=== PATIENT | female | born 1945 | race Caucasian/White ===

== ENCOUNTER → 2017-03-02 | Outpatient (CLI) | payer MEDICARE ==
--- NOTE | 2017-03-02 13:02 | REP ---
Clinical: Pain. Strain. Technique: AP, lateral, bilateral oblique, and sunrise views of the right knee. Findings: Mild tricompartmental degenerative changes include subtle spurring along the tibial plateau and increase sclerosis as well as joint space narrowing at the tibiofemoral and patellofemoral joint spaces. No acute fracture dislocation. No obvious effusion. Impression: Mild tricompartmental arthritic degenerative changes. Signed by Scott Greene MD 03/02/2017 12:53 P
== END ==
LOC: M WUC 12:10
PROVIDERS: ATTEND Physician Assistant
DX: S76.311A Strain of muscle, fascia and tendon of the posterior muscle group at thigh level, right thigh, initial encounter (principal); M17.9 Osteoarthritis of knee, unspecified; X58.XXXA Exposure to other specified factors, initial encounter; Y92.89 Other specified places as the place of occurrence of the external cause; Y93.89 Activity, other specified; Y99.8 Other external cause status

== ENCOUNTER 2018-06-21 11:19 | Outpatient (RCR) | payer MEDICARE | END 2018-07-09 | LOC: M PT 11:19 | PROVIDERS: ATTEND Orthopaedic Surgery | DX: Z51.89 Encounter for other specified aftercare (principal); M17.12 Unilateral primary osteoarthritis, left knee ==

== ENCOUNTER → 2018-07-21 | Outpatient (CLI) | payer MEDICARE ==
[~2018-07-21] MED LIST: ATEN50TA9 PO; ATOR40TA75 PO; LOSA100T5 PO
[2018-07-21 08:46] LABS: HEMATOCRIT 41.6 % (36.0-47.0); HEMOGLOBIN 14.3 g/dl (12.0-15.5); MEAN CORPUSCULAR HEMOGLOBIN 31.3 pg (27.0-33.0); MEAN CORPUSCULAR HGB CONC 34.4 g/dl (32.0-36.5); PLATELET COUNT, AUTOMATED 210 10^3/uL (150-450); RED BLOOD COUNT 4.57 10^6/uL (4.00-5.40); WHITE BLOOD COUNT 6.7 10^3/uL (4.0-10.0)
[2018-07-21 09:10] LABS: ALT/SGPT 36 U/L (12-78); BILIRUBIN,TOTAL 0.4 MG/DL (0.2-1.0); BLOOD UREA NITROGEN 16 MG/DL (7-18); CALCIUM LEVEL 10.8 MG/DL (8.8-10.2); CARBON DIOXIDE LEVEL 30 MEQ/L (21-32); CHLORIDE LEVEL 103 MEQ/L (98-107); GLOMERULAR FILTRATION RATE > 60.0 (>39); GLUCOSE, FASTING 114 MG/DL (70-100); POTASSIUM SERUM 3.8 MEQ/L (3.5-5.1); SODIUM LEVEL 138 MEQ/L (136-145); TOTAL PROTEIN 6.6 GM/DL (6.4-8.2)
[2018-07-21 09:23] LABS: ERYTHROCYTE SEDIMENTATION RATE 13 mm/hr (0-30)
[2018-07-21 09:26] LABS: INR 0.95; PROTHROMBIN TIME 12.8 SECONDS (12.1-14.4)
--- NOTE | 2018-07-21 09:53 | REP ---
PA and lateral chest: There are no comparisons. The lung meraz are clear. The cardiac size is normal. The raphael, mediastinum, and skeletal structures are unremarkable. Impression: Negative PA and lateral chest. Electronically Signed by Rubens Patel MD 07/21/2018 09:45 A
--- NOTE | 2018-07-21 16:53 | ECGEPIP ---
Stationary ECG Study [facility] Test Date: 2018-07-21 Pat Name: SANJAY PENNINGTON Department: Room: - Gender: F User Experience Developer: : 1945 Requested By: Bernard Todd @ [facility] Order Number: [id number] Reading MD: Niall Greco Measurements Intervals [place] Rate: 63 P: 21 MI: 182 QRS: 25 QRSD: 115 T: 56 QT: 393 QTc: 404 Interpretive Statements Normal sinus rhythm Small Q waves III and aVF; rule out prior inferior injury Otherwise normal Electronically Signed On 07-21-2018 16:53:17 EDT by Niall Greco
== END ==
LOC: M LAB 07:47
PROVIDERS: ATTEND Orthopaedic Surgery
DX: Z01.818 Encounter for other preprocedural examination (principal); M17.12 Unilateral primary osteoarthritis, left knee

== ENCOUNTER 2018-08-07 07:54 | Inpatient (IN) | payer MEDICARE ==
--- NOTE | 2018-08-02 17:36 | HPE ---
DATE OF ADMISSION: 08/07/2018 ATTENDING PHYSICIAN: Dr. Bernard Todd CHIEF COMPLAINT: Left knee pain and stiffness. HISTORY: The patient is a 72-year-old female with progressively worsening left knee pain and stiffness. She has failed to improve with conservative measures. She continues to have pain with weightbearing activities and activities of daily living. The patient has consented for an elective left total knee arthroplasty with Dr. Todd for her continued symptoms. Medical optimization pending with Vianey Keys PA-C, and was not available for review during today's appointment. CURRENT MEDICATIONS: - Lipitor 410 mg daily - atenolol 25 mg daily - losartan/hydrochlorothiazide 50/12.5 mg daily ALLERGIES: There are no known drug allergies. CHRONIC MEDICAL CONDITIONS: 1. Hypertension. 2. Hyperlipidemia. 3. Anxiety. SOCIAL HISTORY: The patient denies tobacco use and rarely consumes alcohol. REVIEW OF SYSTEMS: The patient denies fevers, chills, nausea, vomiting or diarrhea. She denies chest pain, shortness of breath, lightheadedness, dizziness, or headaches. She denies abdominal pain. She denies any recent upper respiratory or urinary tract infection symptoms. The patient continues to have left knee pain with weightbearing activities and activities of daily living. PHYSICAL EXAMINATION: GENERAL: Well-nourished, well-developed female in no apparent distress. She is alert, oriented, and cooperative. Mood and affect are appropriate. VITAL SIGNS: Height 62 inches, weight 171 pounds, temperature 97.1, blood pressure 142/84, heart rate 74, respirations 18. HEART: Regular rate and rhythm. LUNGS: Clear to auscultation bilaterally. ABDOMEN: Bowel sounds present. Abdomen is soft, nontender to palpation. MUSCULOSKELETAL: Left knee exhibits no gross abnormalities. Her skin is intact. She is walking today with a limp favoring the left lower extremity. There is tenderness to palpation, most pronounced at the medial joint line of the knee. Motion is near full. Strength is 5/5 of that left lower extremity. No hip irritability was elicited with range of motion testing. Her calf is soft, nontender to palpation with no palpable cords noted. She is neurovascularly intact distally. LABORATORY DATA: Chest x-ray: Negative PA and lateral chest. Left knee x-ray notable for end-stage degenerative changes. EKG: Normal sinus rhythm. Small Q waves in lead III and aVF, rule out prior inferior injury. Comprehensive metabolic profile: Fasting glucose elevated at 114, BUN 16, creatinine for GFR 0.60, GFR greater than 60, sodium 138, potassium 3.8, chloride 103, carbon dioxide 30, anion gap decreased at 5, calcium elevated at 10.8. AST 23, ALT 36, alkaline phosphatase 107, total bilirubin 0.4, total protein 6.6, albumin 4.0, albumin-globulin ratio 1.54. Complete blood count: ESR 13, WBC 6.7, RBC 4.57, hemoglobin 14.3, hematocrit 41.6, platelets 210. Prothrombin time 12.8, INR 0.95. IMPRESSION: Left knee osteoarthritis with x-rays notable for end-stage degenerative changes. PLAN: The patient has consented for an elective left total knee arthroplasty with Dr. Todd for her continued symptoms. Medical optimization pending with DANIELLE Medina
[2018-08-07] VITALS (8 sets, daily range): BP systolic 146–168; BP diastolic 68–84; O2SAT 95
[~2018-08-07] VITALS: Ht 157.5 cm; Wt 76.7 kg
[2018-08-07] MEDS ORDERED: ROPIvacaine 0.5% 30 ML INJECTION (J2795 PER 1MG) ONE (07:55)
[2018-08-07] MEDS ORDERED: ceFAZolin 1GM INJ (J0690 PER 500MG) As Ordered ONE ×2 (08:11→11:58)
[2018-08-07] MEDS ORDERED: TRANEXAMIC ACID 100 MG/ML 10ML VIAL As Ordered ONE ×2 (08:11→11:58)
[2018-08-07] MEDS ORDERED: EPINEPHrine INJ 1 MG/ML 1ML AMP As Ordered ONE ×2 (08:12→11:58)
[2018-08-07] MEDS ORDERED: BUPIVACAINE LIPOSOME/PF 1.3% 20ML VIAL (13.3MG/ML)(EXPAREL)(C9290 PER1MG) As Ordered ONE ×2 (08:13→11:59)
[2018-08-07] MEDS ORDERED: LR 1,000 ML IV SCH ×3 (08:15→12:30)
[2018-08-07] MEDS ORDERED: ATEN50TA2 PO (08:23)
--- NOTE | 2018-08-07 08:53 | IPN ---
DATE: 08/07/2018 Patient seen and examined. She wished to go ahead with a left knee arthroplasty. She understands the nature of procedure, the risks of bleeding, infection, damage to nerves, vessels, persistent pain, wear loosening, blood clots, medical problems, , among others. Preop clearance was obtained.
[2018-08-07] MEDS ORDERED: MIDAZOLAM INJ 2 MG/2 ML VIAL (J2250) As Ordered ONE ×2 (09:05→09:18)
[2018-08-07] MEDS ORDERED: fentaNYL 100 MCG/2 ML INJECTION (J3010) As Ordered ONE ×2 (09:05→10:37)
[2018-08-07] MEDS ORDERED: LIDOCAINE 2% INJ 100 MG/5 ML SDV (FOR ANES.) As Ordered ONE (09:18)
[2018-08-07] MEDS ORDERED: ONDANSETRON 4MG/2ML VIAL (J2405) As Ordered ONE (09:18)
[2018-08-07] MEDS ORDERED: PROPOFOL 500 MG/50 ML VIAL As Ordered ONE (09:18)
[2018-08-07] MEDS ORDERED: MIDAZOLAM INJ 2 MG/2 ML VIAL (J2250) IV PRN (10:00)
[2018-08-07] MEDS ORDERED: fentaNYL 100 MCG/2 ML INJECTION (J3010) IV PRN ×2 (10:00→12:30)
[2018-08-07] MEDS ORDERED: ePHEDrine SULFATE 25 MG/5 ML(5MG/ML) SYRINGE As Ordered ONE (10:37)
[2018-08-07] MEDS ORDERED: BUPIVACAINE/DEXTROSE 0.75% 2 ML AMP As Ordered ONE (10:37)
[2018-08-07] MEDS ORDERED: MORPHINE 4 MG/ML 1ML VIAL/SYRINGE (J2270) IV PRN ×2 (12:30)
[2018-08-07] MEDS ORDERED: PERCOCET 5MG/325MG TAB PO PRN (12:30)
[2018-08-07] MEDS ORDERED: METOCLOPRAMIDE INJ 10MG/2ML VIAL (J2765) IV PRN (12:30)
[2018-08-07] MEDS ORDERED: ONDANSETRON 4MG/2ML VIAL (J2405) IV PRN ×2 (12:30)
[2018-08-07] MEDS ORDERED: FLEET ENEMA PR PRN (12:45)
[2018-08-07] MEDS ORDERED: ACETAMINOPHEN TAB 650MG DOSE (2X325MG) PO PRN (12:45)
--- NOTE | 2018-08-07 14:27 | CR.PDOC ---
General Date of Consultation: Aug 07, 2018 Consultation REASON FOR CONSULTATION/CHIEF COMPLAINT: Presented to [facility] for an elective orthopedic procedure. HISTORY OF PRESENT ILLNESS: Patient is a 72-year-old female with a PMHx of HTN, DLP and Anxiety who presented to the [facility] for an elective orthopedic procedure. Patient has received medical clearance via her outpatient provider SUSHMA Evans (under Dr. Adrian Blackmon). Patient reported that she required cardiac clearance and received a stress test which was negative with Dr. Greco. Patient reports that they failed outpatient conservative therapy with joint infections and Naproxen. She was then scheduled for an elective procedure. Patient was seen postoperatively; she denies headache, nausea, vomiting, abdominal pain, constipation or diarrhea. Patient denies chest pain, shortness of breath, palpations, or cough. The last 2 weeks. Patient denies any fevers or chills. Patient denies any significant change in her appetite. She does report a weight loss of proximally 3-4 pounds over 1 month, which she has done intentionally. ALLERGIES: Please see below. HOME MEDICATIONS: Please see below. PAST MEDICAL HISTORY: HTN, DLP and Anxiety PAST SURGICAL HISTORY: No reported surgeries FAMILY HISTORY: - Mother with history of old age / dementia - Father with history of bone cancer SOCIAL HISTORY: - Denies the use of alcohol, tobacco or illicit drugs - Denies recent travel or sick contacts; reports that her grandson may have the flu - Lives with in [place], [place] - Occupation; retired area secretary/site leasing agent REVIEW OF SYSTEMS: 10 point review systems is complete, all negative otherwise stated in HPI PHYSICAL EXAMINATION: - Vitals: BP 128/63, HR 64, RR 18, Sat 97%NC2L, Temp 97.5F - General: Lying in bed, No acute distress, Speaking in full sentences, AAOx3 - HEENT: NC, AT, PERRLA, EOMI - CVS: RRR, +S1S2, - Murmurs / rubs / gallops - Lungs: Fair air entry bilaterally, Clear to auscultation, No wheezing / rales / rhonchi - Abdomen: Soft, Non-distended, Non-tender - Extremities: No lower extremity edema, No calf tenderness, L knee in dressing - Neuro: No focal motor or sensory deficit - Skin: No visible rashes LABORATORY DATA: Please see below. ASSESSMENT/PLAN: Left knee pain - s/p elective left knee arthroplasty - Presented to the [facility] for an elective orthopedic procedure - Has received outpatient clearance from Rae Keys (under Dr. Adrian Blackmon); and has also received cardiac clearance from Dr. Greco - Pain control, anticoagulated and physical therapy at the direction of orthop edic surgery HTN - Will c/w Atenolol - Will hold Losartan / HCTZ (re: Await lab work) DLP - c/w Atorvastatin Anxiety - Patient has reported an episode of an anxiety attack back in May - Have a history of Ativan for short-term and was prescribed another medication as an outpatient - Patient currently reports that she does not take any medications DVT prophylaxis - c/w anticoagulation as per orthopedic surgery Vital Signs/I&O Vital Signs Date Time Temp Pulse Resp B/P (MAP) Pulse Ox O2 Delivery O2 Flow Rate FiO2 08/07/18 13:05 97.5 64 18 128/63 (84) 97 2 Allergies Coded Allergies: No Known Allergies (Unverified , 07/18/18) Home Medications Scheduled Atenolol (Atenolol) 50 Mg Tablet, 75 MG PO DAILY, (Reported) Atorvastatin Calcium (Atorvastatin Calcium) 40 Mg Tablet, 40 MG PO DAILY, (Reported) Losartan/Hydrochlorothiazide (Losartan-Hctz 100-25 mg Tab) 1 Each Tablet, 1 TAB PO DAILY, (Reported) PRABHU DANIEL MD Aug 07, 2018 14:27
[2018-08-07] MEDS: PERCOCET 5MG/325MG TAB PO PRN ×2 (14:41→21:45)
--- NOTE | 2018-08-07 15:14 | REP ---
AP, LATERAL LEFT KNEE, TWO VIEWS: HISTORY: Postop. The patient is status post left total knee replacement. There is no acute fracture or dislocation. Subcutaneous air and surgical paulina are present in the overlying soft tissue. IMPRESSION: The patient is status post left total knee replacement. There is anatomic alignment. Electronically Signed by Elvis Cordova MD 08/07/2018 03:15 P
[2018-08-07] MEDS: ATORVASTATIN 20 MG TAB PO SCH (17:10)
[2018-08-08 02:00] VITALS: BP 157/70
[2018-08-08] MEDS: PERCOCET 5MG/325MG TAB PO PRN (03:36)
[2018-08-08 06:00] VITALS: BP 164/74
[2018-08-08] MEDS ORDERED: PERCOCET 5MG/325MG TAB PO PRN (06:00)
[2018-08-08 06:55] LABS: HEMATOCRIT 36.2 % (36.0-47.0); HEMOGLOBIN 12.2 g/dl (12.0-15.5); MEAN CORPUSCULAR HEMOGLOBIN 31.1 pg (27.0-33.0); MEAN CORPUSCULAR HGB CONC 33.7 g/dl (32.0-36.5); MEAN CORPUSCULAR VOLUME 92.3 fl (80.0-96.0); PLATELET COUNT, AUTOMATED 179 10^3/uL (150-450); RED BLOOD COUNT 3.92 10^6/uL (4.00-5.40); WHITE BLOOD COUNT 8.4 10^3/uL (4.0-10.0)
[2018-08-08 07:17] LABS: BLOOD UREA NITROGEN 13 MG/DL (7-18); CALCIUM LEVEL 9.9 MG/DL (8.8-10.2); CARBON DIOXIDE LEVEL 30 MEQ/L (21-32); CHLORIDE LEVEL 105 MEQ/L (98-107); CREATININE FOR GFR 0.62 MG/DL (0.55-1.30); GLOMERULAR FILTRATION RATE > 60.0 (>39); GLUCOSE, FASTING 140 MG/DL (70-100); MAGNESIUM LEVEL 1.7 MG/DL (1.8-2.4); POTASSIUM SERUM 3.7 MEQ/L (3.5-5.1); SODIUM LEVEL 139 MEQ/L (136-145)
[2018-08-08] MEDS ORDERED: MAG SULF 1GM/100ML (MAG RUN) 1 GM in APPROPRIATE DILUENT 1 EA IV ONE (07:30)
[2018-08-08] MEDS ORDERED: XARE10TA PO (07:42)
[2018-08-08] MEDS ORDERED: PERC5TAB12 PO (07:42)
[2018-08-08] MEDS ORDERED: ATENOLOL 25 MG TAB PO SCH (09:00)
[2018-08-08] MEDS ORDERED: MOM 30ML SUSPENSION UDC PO SCH (09:00)
[2018-08-08] MEDS ORDERED: MIRALAX *UNIT DOSE* 17GM PACKET PO SCH (09:00)
[2018-08-08] MEDS ORDERED: SENOKOT S TAB PO SCH (09:00)
[2018-08-08] MEDS: ATORVASTATIN 20 MG TAB PO SCH (10:02)
[2018-08-08 10:03] VITALS: BP 164/74
--- NOTE | 2018-08-08 11:43 | IPNPDOC ---
Text Note Date of Service The patient was seen on 08/08/18. NOTE Subjective: Patient is a 72-year-old female with a PMHx of HTN, DLP and Anxiety who presented to the [facility] for an elective orthopedic procedure. Patient has received medical clearance via her outpatient provider SUSHMA Evans (under Dr. Adrian Blackmon). Patient reported that she required cardiac clearance and received a stress test which was negative with Dr. Greco. Patient reports that they failed outpatient conservative therapy with joint infections and Naproxen. She was then scheduled for an elective procedure. Patient was seen and examined at the bedside. Patient reports that she had an uneventful night. Denies chest pain, shortness of breath or palpitations. Reports that she does have the ability to pass flatus, has not yet had a bowel movement. Denies any urinary discomfort. Denies abdominal pain, nausea, vomiting. Patient has been able to move to the commode. However, has not officially work with physical therapy. Objective: Vitals (See below) General: Lying in bed, no acute distress, comfortable, AAOx3 HEENT: NC, AT CVS: RRR, +S1S2 Lungs: Fair air entry b/l, -w/r/r Abdomen: Soft, ND, NT Extremities: - Edema, - Calf tenderness, Left knee in dressing Assessment and plan: Left knee pain - s/p elective left knee arthroplasty (POD#1) - Presented to the [facility] for an elective orthopedic procedure - Has received outpatient clearance from Rae Keys (under Dr. Adrian cobb); and has also received cardiac clearance from Dr. Greco - Pain control, anticoagulated and physical therapy at the direction of orthopedic surgery HTN - BP moderately elevated - Will hold HCTZ - Will c/w Atenolol - Will start Losartan with holding parameters DLP - c/w Atorvastatin Anxiety - Patient has reported an episode of an anxiety attack back in May - Have a history of Ativan for short-term and was prescribed another medication as an outpatient - Patient currently reports that she does not take any medications DVT prophylaxis - c/w anticoagulation as per orthopedic surgery Disposition: - c/w PT - awaiting disposition recommendations VS,Fishbone, I+O VS, Perezbone, I+O Laboratory Tests 08/08/18 06:35 Red Blood Count 3.92 L, Mean Corpuscular Volume 92.3, Mean Corpuscular Hemoglobin 31.1, Mean Corpuscular Hemoglobin Concent 33.7, Red Cell Distribution Width 12.5, Calcium Level 9.9 Vital Signs Date Time Temp Pulse Resp B/P (MAP) Pulse Ox O2 Delivery O2 Flow Rate FiO2 08/08/18 10:03 81 164/74 08/08/18 08:03 16 08/08/18 06:00 97.8 96 08/08/18 02:00 2.0 08/07/18 13:55 Room Air I&O- Last 24 Hours up to 6 AM 08/08/18 06:00 Intake Total 3250 ml Output Total 1025 ml Balance 2225 ml PRABHU DANIEL MD Aug 08, 2018 11:42
[2018-08-08] MEDS ORDERED: LOSARTAN 50 MG TAB PO ONE (12:00)
--- NOTE | 2018-08-08 15:22 | RO ---
DATE OF PROCEDURE: 08/07/2018 PREOPERATIVE DIAGNOSIS: Left knee osteoarthritis. POSTOPERATIVE DIAGNOSIS: Left knee osteoarthritis. PROCEDURE: Left total knee arthroplasty using a cruciate retaining Attune rotating platform size 4 femur and tibia, 10 polyethylene, 32 patellar button. SURGEON: Bernard Todd MD WEAPONS MECHANIC: Phu Reed ANESTHESIA: Spinal. ESTIMATED BLOOD LOSS (EBL): Less than 50 mL. COMPLICATIONS: None. INDICATIONS: This is a 72-year-old woman who has had gradually worsening left knee pain with severe arthritis, and she wished to go ahead with a knee replacement. She understood the nature of this and the risks. DESCRIPTION OF PROCEDURE: Patient was taken to the operating room, placed in supine position after spinal anesthesia was induced. The left lower extremity was prepped and draped in the usual sterile fashion. Time-out was performed. I then created a longitudinal incision over the anterior aspect of the knee after we inflated the tourniquet. The medial parapatellar arthrotomy was performed per routine, everted the patella, flexed the knee up, removed any large osteophytes and used a canal initiating reamer followed by the intramedullary guide set at 9 mm cut, 5 degrees of valgus. This was pinned in place by the engineering assistant. A distal femoral cut was made while I protected soft tissues. I then sized the femur to be a 4. The drill holes were placed in the end of the femur and the cutting block, 4-in-1 was placed, and remaining cuts were made protecting soft tissues. We placed the tibial alignment guide after freeing up some of the posterior cruciate ligament (PCL), and then made the proximal tibia cut removing about 3 mm off the low side, which was quite dense. I did have to make a separate pass with a saw because it was really hard on this side and had tended to skive up. The soft tissue was removed and osteophytes from either side of the knee. We prepared the sulcus cut on the femur in the usual fashion. I then prepared the tibia. The size 4 tray fit nicely. This was drilled and broached, and then I had used the spacer blocks and decided on a 10. I did have to a little bit more of a medial release but overall very pleased with the balance. Exparel was then placed in the deep tissues. I had placed the trial components and put the knee through range of motion and was very pleased with stability and alignment of the knee. Components fit very nicely. I then freehand cut the patella removing about 6 mm of bone, sized to be a 32. The drill holes were placed in the patellar button and in the end of the femur. We did put the knee through range of motion. The patella tracked quite nicely. Trial components were removed. I irrigated copiously. The engineering assistant prepared the bone cement in the modern technique, and I then cemented on the tibial surface after drying it and cemented on the femoral component. We placed the polyethylene, brought the knee out in extension, cemented on the patella. All excess bone cement had been removed. I then began closure proximally with #1 Vicryl suture in interrupted fashion followed by running Stratafix suture, removed the clamp once the cement hardened and finished the closure, obtaining a watertight closure. The patella tracked very nicely. I had irrigated. I had placed tranexamic acid (TXA) in the deep tissues and then did a final irrigation before wound closure. I then irrigated the subcu with #2-0 Vicryl, the skin with paulina. A sterile dressing was applied, and she was taken to recovery room in stable condition. There were no known complications. The plan will be routine postop. The engineering assistant was instrumental in holding retractors and assisting mixing the bone cement, assisting in wound closure.
[2018-08-08] MEDS ORDERED: RIVAROXABAN 10 MG TAB (XARELTO) PO SCH (18:00)
[2018-08-09] MEDS ORDERED: LOSARTAN 50 MG TAB PO SCH (09:00)
--- NOTE | 2018-08-10 15:14 | DSES ---
DATE OF ADMISSION: 08/07/2018 DATE OF DISCHARGE: 08/08/2018 ATTENDING PHYSICIAN: Dr. Bernard Todd ADMISSION DIAGNOSIS: Left knee pain and stiffness. OTHER DIAGNOSES: 1. Hypertension. 2. Hyperlipidemia. 3. Anxiety. DISCHARGE DIAGNOSIS: Left knee pain and stiffness, status post left total knee arthroplasty. HISTORY: The patient is a 72-year-old female with progressively worsening left knee pain and stiffness. She failed to improve with conservative measures. She elected for a left total knee arthroplasty with Dr. Todd. OPERATION PERFORMED: Left total knee arthroplasty. HOSPITAL COURSE: The patient underwent a left total knee arthroplasty under spinal anesthesia which was uneventful. Her hospital course was without complication and she was up with physical therapy per their protocol, weightbearing as tolerated on the left lower extremity. The patient was discharged on oral pain medications and will resume her preoperative medications and diet. She will use her thromboembolic-deterrent stockings and take her anticoagulant as directed to prevent deep venous thrombosis. The patient will followup in our office in 12-14 days for a wound check and staple removal. She is encouraged to contact our office sooner if there is any increase in pain, drainage, numbness or tingling in the extremity, fever greater than 101 degrees, or any other concerns. Please see medical record for additional details.
== END 2018-08-08 12:15 | disposition home or self-care (01) | DRG 470 ==
LOC: M SDC 07:54 → EDSTATUS 10:15 → M MS5PR 13:55 → M SDC 14:16 → M MS5PR 14:17
PROVIDERS: ADMIT Orthopaedic Surgery; ATTEND Orthopaedic Surgery
PROC: 0SRD0J9 Replacement of Left Knee Joint with Synthetic Substitute, Cemented, Open Approach (ICD-10-PCS; principal; 2018-08-07 10:15)
DX: M17.12 Unilateral primary osteoarthritis, left knee (principal); I10 Essential (primary) hypertension; E78.5 Hyperlipidemia, unspecified; R73.02 Impaired glucose tolerance (oral); F41.9 Anxiety disorder, unspecified; R26.89 Other abnormalities of gait and mobility; Z79.899 Other long term (current) drug therapy; Z88.8 Allergy status to other drugs, medicaments and biological substances

== ENCOUNTER 2018-09-07 12:20 | Outpatient (RCR) | payer MEDICARE ==
[~2018-09-07 12:20] MED LIST changes: +ATEN50TA2 PO; +PERC5TAB12 PO; +XARE10TA PO
== END 2018-09-08 ==
LOC: M PT 12:20
PROVIDERS: ATTEND Orthopaedic Surgery
DX: Z47.89 Encounter for other orthopedic aftercare (principal)

== ENCOUNTER 2018-09-21 12:19 | Outpatient (RCR) | payer MEDICARE | END 2018-10-08 | LOC: M PT 12:19 | PROVIDERS: ATTEND Orthopaedic Surgery | DX: Z47.89 Encounter for other orthopedic aftercare (principal) ==

== ENCOUNTER → 2019-05-28 | Outpatient (CLI) | payer MEDICARE ==
[2019-05-28 12:32] LABS: TOTAL PROTEIN 7.4 GM/DL (6.4-8.2)
[2019-05-29 10:48] LABS: ALBUMIN 4.47 GM/DL (3.29-5.55); ALBUMIN % 60.4 % (55.8-66.1); ALPHA-1-GLOBULIN % 4.8 % (2.9-4.9); BETA-1-GLOBULINS % 6.3 % (4.7-7.2); BETA-2-GLOBULINS % 6.8 % (3.2-6.5); GAMMA GLOBULIN % 10.7 % (11.1-18.8)
[2019-05-29 10:49] LABS: ALPHA-1-GLOBULINS 0.36 GM/DL (0.17-0.41); ALPHA-2-GLOBULINS 0.81 GM/DL (0.42-0.99); BETA-1-GLOBULINS 0.47 GM/DL (0.28-0.60); GAMMA GLOBULINS 0.79 GM/DL (0.65-1.58)
== END ==
LOC: M LAB 11:19
PROVIDERS: ATTEND Physician Assistant
DX: E83.52 Hypercalcemia (principal)

== ENCOUNTER → 2019-12-04 | Outpatient (CLI) | payer MEDICARE ==
[2019-12-04 20:16] LABS: BASO % 0.5 % (0.0-1.0); EOS # 0.2 10^3/uL (0.0-0.5); HEMATOCRIT 41.2 % (36.0-47.0); HEMOGLOBIN 14.2 g/dl (12.0-15.5); LYMPH # 1.9 10^3/uL (1.5-5.0); LYMPH % 33.4 % (24.0-44.0); MEAN CORPUSCULAR HGB CONC 34.5 g/dl (32.0-36.5); MEAN CORPUSCULAR VOLUME 95.8 fl (80.0-96.0); MONO # 0.6 10^3/uL (0.0-0.8); MONO % 9.8 % (0.0-5.0); NEUTROPHILS % 52.1 % (36.0-66.0); PLATELET COUNT, AUTOMATED 209 10^3/uL (150-450); WHITE BLOOD COUNT 5.7 10^3/uL (4.0-10.0)
[2019-12-04 20:33] LABS: ALBUMIN 3.9 GM/DL (3.2-5.2); ALT/SGPT 39 U/L (12-78); BILIRUBIN,TOTAL 0.5 MG/DL (0.2-1.0); BLOOD UREA NITROGEN 14 MG/DL (7-18); CALCIUM LEVEL 10.6 MG/DL (8.8-10.2); CARBON DIOXIDE LEVEL 28 MEQ/L (21-32); CHLORIDE LEVEL 107 MEQ/L (98-107); CHOLESTEROL LEVEL 165 MG/DL (<200); CHOLESTEROL RISK RATIO 2.661 (<5); CREATININE FOR GFR 0.61 MG/DL (0.55-1.30); GLOMERULAR FILTRATION RATE > 60.0 (>39); GLUCOSE, FASTING 124 MG/DL (70-100); HDL CHOLESTEROL 62 MG/DL (>40); LDL CHOLESTEROL 66 MG/DL (<100); NON-HDL-C 103 MG/DL; POTASSIUM SERUM 3.9 MEQ/L (3.5-5.1); SODIUM LEVEL 142 MEQ/L (136-145); TOTAL 25(OH) VITAMIN D 26.8 NG/ML (30.0-100.0); TOTAL PROTEIN 6.7 GM/DL (6.4-8.2); TRIGLYCERIDES LEVEL 186 MG/DL (<150)
[2019-12-04 20:45] LABS: HEMOGLOBIN A1c 6.1 %
[2019-12-04 20:50] LABS: CREATININE, URINE 30.9 MG/DL; MALB URINE SIEMENS 6.4 MG/L; MAU/CREAT RATIO 20.7 MCG/MG (0.0-30.0)
== END ==
LOC: M WUC 09:10
PROVIDERS: ATTEND Physician Assistant
DX: E78.2 Mixed hyperlipidemia (principal); R73.02 Impaired glucose tolerance (oral); I10 Essential (primary) hypertension; E83.52 Hypercalcemia

== ENCOUNTER → 2022-08-24 | Outpatient (REF) | payer MEDICARE ==
[2022-08-24 12:29] LABS: ALBUMIN 3.6 G/DL (3.2-5.2); ALKALINE PHOSPHATASE 97 U/L (46-116); ALT/SGPT 31 U/L (7.0-40); AST/SGOT 27 U/L (<34); BILIRUBIN,TOTAL 0.6 MG/DL (0.3-1.2); BLOOD UREA NITROGEN 17 MG/DL (9-23); CALCIUM LEVEL 10.3 MG/DL (8.3-10.6); CARBON DIOXIDE LEVEL 30 MMOL/L (20-31); CHLORIDE LEVEL 104 MMOL/L (98-107); CREATININE FOR GFR 0.55 MG/DL (0.55-1.30); GLOMERULAR FILTRATION RATE > 60.0 (>39); GLUCOSE, FASTING 112 MG/DL (74-106); POTASSIUM SERUM 3.8 MMOL/L (3.5-5.1); SODIUM LEVEL 141 MMOL/L (136-145); TOTAL PROTEIN 6.1 G/DL (5.7-8.2)
[2022-08-24 12:32] LABS: HEMOGLOBIN A1c 5.8 % (4.0-6.0)
== END ==
LOC: M SFHCLERA 08:10
PROVIDERS: ATTEND Student in an Organized Health Care Education/Training Program
DX: R73.03 Prediabetes (principal); E83.52 Hypercalcemia; Z12.11 Encounter for screening for malignant neoplasm of colon

== ENCOUNTER → 2022-09-10 | Outpatient (CLI) | payer MEDICARE | LOC: M WHC 13:03 | PROVIDERS: ATTEND Student in an Organized Health Care Education/Training Program | DX: Z12.31 Encounter for screening mammogram for malignant neoplasm of breast (principal) ==

== ENCOUNTER → 2024-05-16 | Outpatient (CLI) | payer MEDICARE | LOC: M PLAIMG 14:21 | PROVIDERS: ATTEND Physician Assistant | DX: M25.552 Pain in left hip (principal); M70.62 Trochanteric bursitis, left hip; M16.12 Unilateral primary osteoarthritis, left hip; S73.192A Other sprain of left hip, initial encounter; X58.XXXA Exposure to other specified factors, initial encounter ==